=== PATIENT | female | born 1965 | race Caucasian/White ===

== ENCOUNTER 2023-01-09 22:49 | Emergency (ER) | payer BC, OTHER ==
--- OUTSIDE RECORDS SUMMARY | 2023-01-09 22:51 | XMS REPORT | Continuity of Care Document ---
:1965 Author Organization [facility] t Address [address] [address] Care Team Providers Name Role Phone [email or web address] Attending Clinician Unavailable ONEIDA BARRAZA Attending Clinician Unavailable [email or web address] Admitting Clinician Unavailable Payers Payer Name Policy Type Policy Number Effective Date Expiration Date Leland HAGAN 2 [id number] 2022 00:00:00 Problems This patient has no known problems. Allergies, Adverse Reactions, Alerts This patient has no known allergies or adverse reactions. Medications This patient has no known medications. Procedures This patient has no known procedures. Encounters Start End Encounter Admission Attending Care Care Encounter Source Date/Time Date/Time Type Type Clinicians Facility Department ID 2022-08-11 2022-08-11 Outpatient GC_EAH_Brow PRIV PRIV [id number] [facility] 00:00:00 00:00:00 n_J [id number] Medica l 2022-03-15 2022-03-15 Outpatient JAVIER HERRERA [id number] [facility] 12:55:00 12:55:00 Seybol d 2022-03-15 2022-03-15 Outpatient JAVIER HERRERA [id number] [facility]avier 12:50:00 12:50:00 Seybol d 2022-03-15 2022-03-15 Outpatient JAVIER HERRERA [id number] Javier 12:45:00 12:45:00 Seybol d 2022-03-15 2022-03-15 Outpatient JAVIER BARRAZA [id number] [facility] 00:00:00 00:00:00 ONEIDA Seybol d 2022-03-08 2022-03-08 Outpatient JAVIER HERRERA [id number] [facility] 14:20:00 14:20:00 Seybol d 2022-02-23 2022-02-23 Outpatient JAVIER BARRAZA [id number] [facility] 00:00:00 00:00:00 ONEIDA Mcdonaldol d 2021-01-24 2021-01-24 Outpatient GC_[facility] PRIV PRIV [id number] [facility] 00:00:00 00:00:00 n_J [id number] Medica l Results Test Description Test Time Test Comments Results Result Sourc e Comments SCR MAMM 2018-10-28 - SCR MAMM BILATERAL BILATERAL [place] 08:20:02 [place] CAD CAD DIGITAL DIGITALBILATERAL DIGITAL SCREENING MAMMOGRAM 3D/2D WITH CAD: 10/22/2018CLINICAL: Asymptomatic. Digital breast tomosynthesis was performed in addition to routine CC and MLO views. Current mammographic images were evaluated by either a [employer] M-Vu or a [employer] Image[employer]er CAD (computer aided detection system). Comparison is made to exams dated 10/17/2017 mammogram, 10/09/2016 mammogram - [facility], and 08/17/2013 mammogram - [facility]. There are scattered fibroglandular tissues in both breasts. No suspicious mass, architectural distortion, malignant type calcification, or lymph node abnormality detected. Breast architecture is stable compared to prior exams.IMPRESSION: NEGATIVEThere is no mammographic evidence of malignancy. Resume annual screening mammography in one year. Rex Hays M.D. et/penrad:10/28/2018 08:20:02 Wool Grower: Latrice Moore MM, [facility]: BIRADS 1-2 Normal Mammogram BI-RADS: 1 Negative
[2023-01-10 00:40] LABS: Hematocrit 38.2 % (36.0-45.0); Lymphocytes % 43.1 % (15.3-44.8); MCV 90.5 fL (80-100); MPV 8.4 fL (7.6-11.3); Platelets 239 thou/uL (152-406); RBC Red Blood Cell Count 4.22 M/uL (3.86-4.86)
[2023-01-10 00:53] LABS: ALT/SGPT 27 U/L (13-56); AST/SGOT 18 U/L (15-37); Albumin 3.5 g/dL (3.4-5.0); Alkaline Phosphatase 85 U/L (45-117); BUN Blood Urea Nitrogen 17 mg/dL (7-18); Bicarbonate 30 mEq/L (21-32); Bilirubin Total 0.3 mg/dL (0.2-1.0); Glomerular Filtration Rate 79 ml/min (=/>90); Glucose Level 96 mg/dL (74-106); NT PRO-BNP 79 pg/mL (<125); Potassium 3.6 mEq/L (3.5-5.1); Protein, Total 7.3 g/dL (6.4-8.2); Sodium Level 139 mEq/L (136-145)
[2023-01-10 00:54] LABS: Bilirubin Direct < 0.1 mg/dL (0-0.2); Bilirubin Indirect, Calculated ND mg/dL (0.2-0.8)
--- NOTE | 2023-01-10 00:57 | ER ---
Nurse's Notes [facility] Name: Jen Ramírez Age: 57 yrs Sex: Female : 1965 Arrival Date: 01/09/2023 Time: 22:49 Bed 2 Private MD: Valdemar Ruiz Diagnosis: Essential (primary) hypertension Presentation: 01/09 23:26 Chief complaint: Patient states: took her blood pressure today and it was high at home as6 and pt was worried so decided to come here to get it checked out. Coronavirus screen: At this time, the client does not indicate any symptoms associated with coronavirus-19. Ebola Screen: No symptoms or risks identified at this time. Initial Sepsis Screen: Does the patient meet any 2 criteria? No. Patient's initial sepsis screen is negative. Does the patient have a suspected source of infection? No. Patient's initial sepsis screen is negative. Risk Assessment: Do you want to hurt yourself or someone else? Patient reports no desire to harm self or others. Onset of symptoms was January 09, 2023. 23:26 Acuity: SEAN 3 as6 23:26 Method Of Arrival: Ambulatory as6 Historical: - Allergies: 23:29 No Known Allergies; as6 - PMHx: 23:29 thyroid issue; as6 - PSHx: 23:29 None; as6 - Immunization history:: Client reports having NOT received the Covid vaccine. - Social history:: Smoking status: Patient denies any tobacco usage or history of. - Family history:: not pertinent. - Hospitalizations: : No recent hospitalization is reported. Screenin:46 [facility] ED Fall Risk Assessment (Adult) History of falling in the last 3 months, rv including since admission No falls in past 3 months (0 pts) Score/Fall Risk Level 0 - 2 = Low Risk Oriented to surroundings, Maintained a safe environment, Educated pt \T\ family on fall prevention, incl call for assistance when getting out of bed, Assessed \T\ reinforced patient's understanding of fall precautions, Provided non-skid footwear, Hourly rounding (assess needs \T\ fall precautionary measures) done, Used ambulatory aids as needed (educated on \T\ assisted with), Used gait belt as appropriate. Abuse screen: Denies threats or abuse. Denies injuries from another. Nutritional screening: No deficits noted. Tuberculosis screening: No symptoms or risk factors identified. Assessment: 23:46 General: Appears comfortable, Behavior is calm, cooperative. Pain: Denies pain. Neuro: rv Level of Consciousness is awake, alert, obeys commands, Oriented to person, place, time, situation. Cardiovascular: Capillary refill < 3 seconds Patient's skin is warm and dry. Respiratory: Airway is patent Respiratory effort is even, unlabored. Derm: Skin is intact. 01/10 00:18 Reassessment: Patient and/or family updated on plan of care and expected duration. Pain ha1 level reassessed. Patient is alert, oriented x 3, equal unlabored respirations, skin warm/dry/pink. Vital Signs: 01/09 23:26 BP 188 / 99; Pulse 65; Resp 18 S; Temp 97.9(TE); Pulse Ox 98% on R/A; Weight 100.7 kg as6 (R); Height 5 ft. 6 in. (R); Pain 0/10; 23:46 BP 167 / 94; Pulse 62; Resp 16; Pulse Ox 97% ; rv 01/10 01:13 BP 161 / 93; Pulse 64; Resp 16; Temp 98; Pulse Ox 99% on R/A; rv 01/09 23:26 Body Mass Index 35.83 (100.70 kg, 167.64 cm) as6 01/09 23:26 Pain Scale: Adult as6 Atif Coma Score: 01:13 Eye Response: spontaneous(4). Motor Response: obeys commands(6). Verbal Response: rv oriented(5). Total: 15. ED Course: 01/09 22:54 Patient arrived in ED. mr 22:54 Valdemar Ruiz MD is Private Physician. mr 23:07 Conor Champion MD is Attending Physician. rn 23:29 Nasim Calero RN is Primary Nurse. rv 23:29 Triage completed. as6 23:29 Arm band placed on. as6 23:46 Patient has correct armband on for positive identification. Provided Education on: EKG. rv Client placed on continuous cardiac and pulse oximetry monitoring. NIBP monitoring applied. electronic device monitor on. 23:46 No provider procedures requiring assistance completed. Inserted saline lock: 20 gauge rv in left antecubital area, using aseptic technique. Blood collected. 01/10 01:14 IV discontinued, intact, bleeding controlled, No redness/swelling at site. Pressure rv dressing applied. Administered Medications: No medications were administered Medication: 01/09 23:47 VIS not applicable for this client. rv Outcome: 01/10 00:56 Discharge ordered by . rn 01:13 Discharged to home ambulatory. rv 01:13 Condition: improved 01:13 Discharge instructions given to patient, Instructed on discharge instructions, follow up and referral plans. Demonstrated understanding of instructions, follow-up care. 01:14 Patient left the ED. rv Signatures: Muriel Castellon Roman, MD MD rn Nasim Calero RN RN rv Cameron Whitten, RN RN as6 Marjan Magana RN RN ha1 Corrections: (The following items were deleted from the chart) 01/09 23:29 23:29 Home Meds: None; as6 as6 23: 23:29 PMHx: None; as6 as6
--- NOTE | 2023-01-10 00:57 | EDPHYS ---
Physician Documentation [facility] Name: Jen Ramírez Age: 57 yrs Sex: Female : 1965 Arrival Date: 01/09/2023 Time: 22:49 Bed 2 Private MD: Valdemar Ruiz ED Physician Conor Champion HPI: 01/09 23:53 This 57 yrs old Female presents to ER via Ambulatory with complaints of High Blood rn Pressure. 23:53 The patient has elevated blood pressure and discovered this at a physician's office. rn 23:53 Onset: The symptoms/episode began/occurred 1 week(s) ago. Modifying factors:. Severity rn of symptoms: At its worst the blood pressure was moderate, in the emergency department the blood pressure is unchanged. The patient has experienced similar episodes in the past. Patient reports high blood pressure that was noted at her physician's office and she has been taking a journal of her blood pressure daily. Today noticed her blood pressure was higher than it has been, read 180/100. Denies any headache or focal neurologic problem. No vision changes. No chest pain or shortness of breath. No abdominal or back pain.. Historical: - Allergies: 23:29 No Known Allergies; as6 - PMHx: 23:29 thyroid issue; as6 - PSHx: 23:29 None; as6 - Immunization history:: Client reports having NOT received the Covid vaccine. - Social history:: Smoking status: Patient denies any tobacco usage or history of. - Family history:: not pertinent. - Hospitalizations: : No recent hospitalization is reported. ROS: 23:53 Constitutional: Negative for fever, chills, and weight loss, Eyes: Negative for injury, rn pain, redness, and discharge, Cardiovascular: Negative for chest pain, palpitations, and edema, Respiratory: Negative for shortness of breath, cough, wheezing, and pleuritic chest pain, Abdomen/GI: Negative for abdominal pain, nausea, vomiting, diarrhea, and constipation, Back: Negative for injury and pain, MS/Extremity: Negative for injury and deformity, Skin: Negative for injury, rash, and discoloration, Neuro: Negative for headache, weakness, numbness, tingling, and seizure. Exam: 23:53 Constitutional: This is a well developed, well nourished patient who is awake, alert, rn and in no acute distress. Head/Face: Normocephalic, atraumatic. Cardiovascular: Regular rate and rhythm. No pulse deficits. Respiratory: No increased work of breathing, no retractions or nasal flaring. Abdomen/GI: Soft, non-tender Skin: Warm, dry MS/ Extremity: Pulses equal, no cyanosis. Neurovascular intact. Full, normal range of motion. Equal circumference. Neuro: Awake and alert, GCS 15, oriented to person, place, time, and situation. Cranial nerves II-XII grossly intact. Motor strength 5/5 in all extremities. Sensory grossly intact. Cerebellar exam normal. Normal gait. 01/10 00:05 ECG was reviewed by the Attending Physician. rn Vital Signs: 01/09 23:26 BP 188 / 99; Pulse 65; Resp 18 S; Temp 97.9(TE); Pulse Ox 98% on R/A; Weight 100.7 kg as6 (R); Height 5 ft. 6 in. (R); Pain 0/10; 23:46 BP 167 / 94; Pulse 62; Resp 16; Pulse Ox 97% ; rv 01/10 01:13 BP 161 / 93; Pulse 64; Resp 16; Temp 98; Pulse Ox 99% on R/A; rv 01/09 23:26 Body Mass Index 35.83 (100.70 kg, 167.64 cm) as6 01/09 23:26 Pain Scale: Adult as6 Reinbeck Coma Score: 01:13 Eye Response: spontaneous(4). Motor Response: obeys commands(6). Verbal Response: rv oriented(5). Total: 15. MDM: 01/09 23:07 Patient medically screened. rn 01/10 00:55 Differential diagnosis: hypertensive crisis, Malignant HTN, Asymptomatic hypertension. rn Data reviewed: vital signs, nurses notes, lab test result(s), EKG, and as a result, I will discharge patient. Counseling: I had a detailed discussion with the patient and/or guardian regarding the historical points, exam findings, and any diagnostic results supporting the discharge/admit diagnosis, lab results, the need for outpatient follow up, to return to the emergency department if symptoms worsen or persist or if there are any questions or concerns that arise at home. Special discussion: I discussed with the patient/guardian in detail that at this point there is no indication for admission to the hospital. It is understood, however, that if the symptoms persist or worsen the patient needs to return immediately for re-evaluation. Based on the history and exam findings, there is no indication for further emergent testing or inpatient evaluation. I discussed with the patient/guardian the need to see the primary care provider for further evaluation of the symptoms. ED course: No evidence of endorgan damage here, improvement of blood pressure here. Normal neurological exam. Will DC home with continuation of blood pressure management and reading by PCP.. 01/09 23:39 Order name: Basic Metabolic Panel; Complete Time: 00:54 rn 01/09 23:39 Order name: CBC with Diff; Complete Time: 00:54 rn 01/09 23:39 Order name: LFT's; Complete Time: : 01/09 23:39 Order name: NT PRO-BNP; Complete Time: 00:54 01/09 23:39 Order name: Troponin HS; Complete Time: 00:54 01/09 23:39 Order name: EKG; Complete Time: 23:40 rn 01/09 23:39 Order name: Cardiac monitoring; Complete Time: 23:45 rn 01/09 23:39 Order name: EKG - Nurse/Tech; Complete Time: 23:45 rn 01/09 23:39 Order name: IV Saline Lock; Complete Time: :45 rn 01/09 23:39 Order name: Labs collected and sent; Complete Time: 23:45 rn 01/09 23:39 Order name: O2 Per Protocol; Complete Time: 23:45 rn 01/09 23:39 Order name: O2 Sat Monitoring; Complete Time: 23:45 rn EC:05 Rate is 62 beats/min. Rhythm is regular. QRS [place] is Normal. [place] interval is normal. QRS rn interval is normal. QT interval is normal. No Q waves. T waves are Normal. No ST changes noted. Clinical impression: Normal ECG. Interpreted by me. Reviewed by me. Administered Medications: No medications were administered Disposition Summary: 01/10/23 00:56 Discharge Ordered Location: Home rn Problem: an ongoing problem rn Symptoms: have improved rn Condition: Stable rn Diagnosis - Essential (primary) hypertension rn Followup: rn - With: Private Physician - When: As needed - Reason: Recheck today's complaints, Re-evaluation by your physician Discharge Instructions: - Discharge Summary Sheet rn - Hypertension, Adult rn - Heart Disease rn lpn lvn - How to Take Your Blood Pressure, Rkly-ne-Oebg rn - Managing Your Hypertension rn Forms: - Medication Reconciliation Form rn - Thank You Letter rn - Antibiotic pigment furnace tender - Prescription Opioid Use rn - Patient Portal Instructions rn - Leadership Thank You Letter rn Signatures: Dispatcher [employer] Conor Rhodes MD MD rn Slawson, Ashby, RN RN as6 Corrections: (The following items were deleted from the chart) 01/09 23:29 23:29 Home Meds: None; as6 as6 23:29 23:29 PMHx: None; as6 as6
--- NOTE | 2023-01-10 13:01 | EKG ---
Test Date: 2023-01-09 Test Time: 23:47:03 System Admin: VIJAYA MEASUREMENT RESULTS: Intervals: Rate: 62 [place]: 170 QRSD: 90 QT: 422 QTc: 428 [place]: P: 59 [place]: 170 QRS: -7 T: 55 INTERPRETIVE STATEMENTS: Normal sinus rhythm Normal ECG No previous ECG available for comparison Electronically Signed On 01-10-23 13:00:11 CDT by Fausto James
== END 2023-01-10 01:14 | disposition home or self-care (01) ==
LOC: ER 22:49
DX: I10 Essential (primary) hypertension (principal)
CPT/HCPCS: 36415; 80048; 80076; 83880; 84484; 85025; 93005; 99284